=== PATIENT | male | born 1960 | race Caucasian/White ===

== ENCOUNTER 2018-06-16 12:10 | Inpatient (IN) | payer OTHER ==
[~2018-06-16] VITALS: Ht 182.9 cm; Wt 110.4 kg
[~2018-06-16 12:10] MED LIST: NO HOME MEDS; PER10325T PO
[2018-06-16 12:44] LABS: BASOPHILS # (AUTO) 0.1 X10'3 (0-0.2); BASOPHILS % (AUTO) 0.7 % (0-1); EOSINOPHILS # (AUTO) 0.1 X10'3 (0-0.9); EOSINOPHILS % (AUTO) 0.9 % (0-6); HEMATOCRIT 44.7 % (42.0-52.0); HEMOGLOBIN 15.3 g/dl (14.0-17.9); LYMPHOCYTES # (AUTO) 1.5 X10'3 (1.1-4.8); LYMPHOCYTES % (AUTO) 21.7 % (21-51); MEAN CORPUSCULAR HEMOGLOBIN 31.5 PG (27.0-31.0); MEAN CORPUSCULAR HGB CONC 34.3 % (33.0-36.5); MONOCYTES # (AUTO) 0.4 X10'3 (0-0.9); MONOCYTES % (AUTO) 6.1 % (2-12); NEUTROPHILS # (AUTO) 4.9 X10'3 (1.8-7.7); NEUTROPHILS % (AUTO) 70.6 % (42-75); PLATELET COUNT 150 X10'3 (140-440); RED BLOOD COUNT 4.86 X10'6 (4.70-6.10); RED CELL DISTRIBUTION WIDTH 12.9 % (11.5-14.5)
[2018-06-16] MEDS: normal saline 1000ml 1,000 ML IV SCH ×4 (12:44→19:22)
[2018-06-16] MEDS ORDERED: acetaminophen 325mg tablet PO PRN (12:45)
[2018-06-16] MEDS ORDERED: ondansetron/PF 4mg/2ml inj IV PRN (12:45)
[2018-06-16] MEDS ORDERED: heparin 10,000 units/1 ML INJ IV PRN (12:55)
[2018-06-16 13:10] LABS: ANION GAP 8 (8-16); BLOOD UREA NITROGEN 12 MG/DL (7-18); CHLORIDE 106 MMOL/L (99-107); CREATININE 0.89 MG/DL (0.60-1.10); GLUCOSE 94 MG/DL (70-104); POTASSIUM 4.5 MMOL/L (3.5-5.1); SODIUM 139 MMOL/L (135-145); TOTAL CARBON DIOXIDE 24.7 MMOL/L (24-32)
[2018-06-16 13:11] LABS: ALANINE AMINOTRANSFERASE 25 U/L (12-78); ALBUMIN 3.5 G/DL (3.4-5.0); ALBUMIN/GLOBULIN RATIO 1.1 (1.1-1.5); ALKALINE PHOSPHATASE 74 IU/L (46-116); ASPARTATE AMINO TRANSFERASE 24 U/L (10-37); BILIRUBIN,TOTAL 0.7 MG/DL (0.1-1.0); BUN/CREATININE RATIO 13.5 (5.4-32.0); CALCIUM 8.8 MG/DL (8.5-10.1); TOTAL PROTEIN 6.8 G/DL (6.4-8.2); eGFR 87 ML/MIN
[2018-06-16] MEDS: heparin 25,000 UNIT/250ml bag 250 ML IV SCH ×3 (13:37→20:06)
[2018-06-16] MEDS: morphine 2 MG/ML inj. syringe IV PRN ×2 (13:38→23:23)
[2018-06-16] MEDS ORDERED: IBUP-1984 PO (13:56)
[2018-06-16] MEDS ORDERED: ACET-75 PO (13:56)
[2018-06-16 14:34] LABS: D-DIMER < 0.19 MG/L FEU (0-0.50); PARTIAL THROMBOPLASTIN TIME 51 SECONDS (22-32); PROTHROMBIN TIME 10.6 SECONDS (9.0-12.0)
[2018-06-16 16:10] VITALS: BP 127/76
[2018-06-16] MEDS: tirofiban 5mg in NS 100mL 100 ML IV SCH ×3 (16:35→23:24)
[2018-06-16] MEDS ORDERED: tirofiban 5mg in NS 100mL 100 ML IV SCH (16:35)
[2018-06-16 18:32] LABS: PARTIAL THROMBOPLASTIN TIME 37 SECONDS (22-32)
[2018-06-16 19:00] VITALS: BP 107/70
[2018-06-16] MEDS ORDERED: FLU VACC QUAD 2018(5 YR UP)/PF 60 MCG/0.5 ML SYRINGE IM ONE (20:00)
[2018-06-16 23:00] VITALS: BP 104/63
[2018-06-17] VITALS (21 sets, daily range): BP systolic 76–143; BP diastolic 56–86
[2018-06-17 02:50] LABS: BASOPHILS % (AUTO) 0.8 % (0-1); EOSINOPHILS # (AUTO) 0.2 X10'3 (0-0.9); EOSINOPHILS % (AUTO) 2.8 % (0-6); HEMATOCRIT 42.2 % (42.0-52.0); HEMOGLOBIN 14.5 g/dl (14.0-17.9); LYMPHOCYTES # (AUTO) 1.8 X10'3 (1.1-4.8); LYMPHOCYTES % (AUTO) 32.5 % (21-51); MEAN CORPUSCULAR HEMOGLOBIN 31.7 PG (27.0-31.0); MEAN CORPUSCULAR HGB CONC 34.4 % (33.0-36.5); MEAN CORPUSCULAR VOLUME 92.3 FL (78-98); MEAN PLATELET VOLUME 9.7 FL (7.4-10.4); MONOCYTES # (AUTO) 0.4 X10'3 (0-0.9); MONOCYTES % (AUTO) 7.8 % (2-12); NEUTROPHILS # (AUTO) 3.1 X10'3 (1.8-7.7); NEUTROPHILS % (AUTO) 56.1 % (42-75); PLATELET COUNT 149 X10'3 (140-440); RED BLOOD COUNT 4.57 X10'6 (4.70-6.10); RED CELL DISTRIBUTION WIDTH 12.8 % (11.5-14.5); WHITE BLOOD COUNT 5.6 X10'3 (4.5-11.0)
[2018-06-17 02:53] LABS: ALBUMIN 3.1 G/DL (3.4-5.0); ANION GAP 9 (8-16); BLOOD UREA NITROGEN 12 MG/DL (7-18); BUN/CREATININE RATIO 12.8 (5.4-32.0); CALCIUM 8.3 MG/DL (8.5-10.1); CHLORIDE 106 MMOL/L (99-107); CREATININE 0.94 MG/DL (0.60-1.10); GLUCOSE 113 MG/DL (70-104); POTASSIUM 3.7 MMOL/L (3.5-5.1); SODIUM 140 MMOL/L (135-145); TOTAL CARBON DIOXIDE 25.3 MMOL/L (24-32); eGFR 82 ML/MIN
[2018-06-17] MEDS ORDERED: heparin 1,000unit/ml 10ml vial 10 ML ONE (06:40)
[2018-06-17] MEDS ORDERED: nitroGLYCERIN-Tridil 50MG/D5W 250 ML IV ONE (06:40)
[2018-06-17] MEDS ORDERED: LIDOcaine 1% (10mg/ml)w/preservative injection 20ml MDV ONE (06:40)
[2018-06-17] MEDS ORDERED: fentaNYL/PF 50MCG/1 ML 2ML syringe ONE (06:40)
[2018-06-17] MEDS ORDERED: midazolam 2 mg/2 ml injection ONE (06:40)
[2018-06-17] MEDS ORDERED: iohexol 350 MG/ML 50ML vial IV ONE (06:41)
[2018-06-17] MEDS ORDERED: iohexol 350MG/ML 100ml bottle IV ONE ×2 (06:41→07:43)
[2018-06-17] MEDS ORDERED: clopidogrel 300mg tablet ONE (08:09)
[2018-06-17] MEDS ORDERED: aspirin 81mg tab.chew PO ONE (08:30)
[2018-06-17] MEDS: tirofiban 5mg in NS 100mL 100 ML IV SCH ×4 (08:52→23:49)
[2018-06-17] MEDS ORDERED: HYDROcodone/acetaminophen 10/325mg tab PO PRN (10:15)
[2018-06-17] MEDS ORDERED: proCHLORperazine 10 MG/2 ml inj IV PRN (10:15)
[2018-06-17] MEDS ORDERED: cyclobenzaprine 10mg tablet PO PRN (10:15)
[2018-06-17] MEDS ORDERED: CLOPIDOGREL BISULFATE 300MG TAB PO ONE (10:15)
[2018-06-17] MEDS ORDERED: magnesium hydroxide 30ml (MOM) UD suspension PO PRN (10:15)
[2018-06-17] MEDS ORDERED: acetaminophen 325mg tablet PO PRN (10:15)
[2018-06-17] MEDS ORDERED: OXAZEpam 15mg capsule PO PRN (10:15)
[2018-06-17] MEDS: normal saline 1000ml 1,000 ML IV SCH ×3 (10:20→23:49)
[2018-06-17] MEDS ORDERED: aspirin 325mg tablet PO ONE (10:20)
[2018-06-17] MEDS: HYDROcodone/acetaminophen 10/325mg tab PO PRN ×2 (15:18→19:51)
[2018-06-17] MEDS: metoprolol tartrate 12.5mg (1/2 tablet) PO SCH (19:52)
[2018-06-17] MEDS: docusate sod 100mg capsule PO SCH (19:52)
[2018-06-17] MEDS: heparin 25,000 UNIT/250ml bag 250 ML IV SCH (20:55)
[2018-06-18] VITALS (14 sets, daily range): BP systolic 76–125; BP diastolic 52–87
[2018-06-18] MEDS: tirofiban 5mg in NS 100mL 100 ML IV SCH ×2 (04:58→10:19)
[2018-06-18 05:28] LABS: BASOPHILS % (AUTO) 0.5 % (0-1); EOSINOPHILS # (AUTO) 0.2 X10'3 (0-0.9); EOSINOPHILS % (AUTO) 2.7 % (0-6); HEMATOCRIT 40.8 % (42.0-52.0); HEMOGLOBIN 13.9 g/dl (14.0-17.9); MEAN CORPUSCULAR HEMOGLOBIN 31.4 PG (27.0-31.0); MEAN CORPUSCULAR VOLUME 92.4 FL (78-98); MEAN PLATELET VOLUME 9.6 FL (7.4-10.4); MONOCYTES # (AUTO) 0.6 X10'3 (0-0.9); MONOCYTES % (AUTO) 8.4 % (2-12); NEUTROPHILS # (AUTO) 4.9 X10'3 (1.8-7.7); NEUTROPHILS % (AUTO) 73.4 % (42-75); PLATELET COUNT 145 X10'3 (140-440); RED BLOOD COUNT 4.42 X10'6 (4.70-6.10); RED CELL DISTRIBUTION WIDTH 12.8 % (11.5-14.5); WHITE BLOOD COUNT 6.7 X10'3 (4.5-11.0)
[2018-06-18 05:42] LABS: ANION GAP 8 (8-16); BLOOD UREA NITROGEN 11 MG/DL (7-18); BUN/CREATININE RATIO 11.6 (5.4-32.0); CALCIUM 7.9 MG/DL (8.5-10.1); CHLORIDE 106 MMOL/L (99-107); CHOL/HDL RATIO 4.4 (0.00-4.99); CHOLESTEROL 136 MG/DL (0-200); CREATININE 0.95 MG/DL (0.60-1.10); GLUCOSE 97 MG/DL (70-104); HDL CHOLESTEROL 31 MG/DL (35-60); LDL CHOLESTEROL 89 MG/DL (50-100); POTASSIUM 3.8 MMOL/L (3.5-5.1); SODIUM 139 MMOL/L (135-145); TOTAL CARBON DIOXIDE 24.6 MMOL/L (24-32); TRIGLYCERIDES 126 MG/DL (20-135); eGFR 81 ML/MIN
[2018-06-18] MEDS: docusate sod 100mg capsule PO SCH (07:45)
[2018-06-18] MEDS: metoprolol tartrate 12.5mg (1/2 tablet) PO SCH (07:45)
[2018-06-18] MEDS ORDERED: atorvastatin 20mg tablet PO SCH (08:00)
[2018-06-18] MEDS ORDERED: clopidogrel 75mg tablet PO SCH (08:00)
[2018-06-18] MEDS ORDERED: lisinopril 2.5mg tablet PO SCH (08:00)
[2018-06-18] MEDS ORDERED: aspirin 325mg tablet PO SCH (08:30)
[2018-06-18] MEDS ORDERED: CLOP75TA35 PO (11:43)
[2018-06-18] MEDS ORDERED: ATOR20TA66 PO (11:43)
[2018-06-18] MEDS ORDERED: LISI2.5T2 PO (11:43)
[2018-06-18] MEDS ORDERED: METO25TA6 PO (11:43)
[2018-06-18] MEDS ORDERED: ASPI-1 PO (11:43)
[2018-06-18] MEDS: normal saline 1000ml 1,000 ML IV SCH (12:44)
== END 2018-06-18 13:30 | disposition home or self-care (01) | DRG 247 ==
LOC: ER 12:11 → ED HOLD 12:44 → PCU 3S 15:40 → CICU 2S 06-17 08:45
PROVIDERS: ADMIT Internal Medicine; ATTEND Internal Medicine
PROC: 027034Z Dilation of Coronary Artery, One Artery with Drug-eluting Intraluminal Device, Percutaneous Approach (ICD-10-PCS; principal; 2018-06-17)
PROC: 02703ZZ Dilation of Coronary Artery, One Artery, Percutaneous Approach (ICD-10-PCS; 2018-06-17)
PROC: 4A023N7 Measurement of Cardiac Sampling and Pressure, Left Heart, Percutaneous Approach (ICD-10-PCS; 2018-06-17)
PROC: B2111ZZ Fluoroscopy of Multiple Coronary Arteries using Low Osmolar Contrast (ICD-10-PCS; 2018-06-17)
PROC: B2151ZZ Fluoroscopy of Left Heart using Low Osmolar Contrast (ICD-10-PCS; 2018-06-17)
DX: I21.4 Non-ST elevation (NSTEMI) myocardial infarction (principal); Z96.651 Presence of right artificial knee joint; M19.90 Unspecified osteoarthritis, unspecified site; Z90.49 Acquired absence of other specified parts of digestive tract; Z82.49 Family history of ischemic heart disease and other diseases of the circulatory system; Z28.21 Immunization not carried out because of patient refusal
CPT/HCPCS: 92920; 93458; 99285; C9600; 36415; 71045; 80048; 80053; 80061; 83735; 83880; 84484; 85025; 85347; 85379; 85610; 85730; 93005; 99152; 99153; A4620; A6257; C1725; C1769; C1874; G0378; J1644; J2001; J2250; J2270; J3010; J3246; J3490; J7030; Q2037; Q9967